=== PATIENT | female | born 1965 | race African-American/Black ===

== ENCOUNTER 2017-02-21 10:25 | Emergency (ER) | payer BC, SELFPAY ==
[2017-02-21] MEDS ORDERED: predniSONE 20 MG TAB ONE (11:46)
[2017-02-21] MEDS ORDERED: Ondansetron ODT 4 MG TAB ONE (11:46)
[2017-02-21] MEDS ORDERED: Indomethacin 25 mg Capsule ONE (11:46)
== END 2017-02-21 12:02 | disposition home or self-care (01) ==
LOC: MADERS 10:25
DX: M06.9 Rheumatoid arthritis, unspecified (principal); E11.9 Type 2 diabetes mellitus without complications; E78.5 Hyperlipidemia, unspecified; I10 Essential (primary) hypertension; F17.210 Nicotine dependence, cigarettes, uncomplicated
CPT/HCPCS: 96372; J2270; J7506; Q0162

== ENCOUNTER 2017-04-08 09:39 | Emergency (ER) | payer SELFPAY ==
[2017-04-08] MEDS ORDERED: Dexamethasone 4 MG TAB ONE (10:02)
[2017-04-08] MEDS ORDERED: Ibuprofen 800 MG TAB ONE (10:02)
[2017-04-08] MEDS ORDERED: HYDROcodone/Acetaminophen 10/325 mg Tablet ONE (10:05)
== END 2017-04-08 10:25 | disposition home or self-care (01) ==
LOC: MADERS 09:39
DX: M06.9 Rheumatoid arthritis, unspecified (principal); E11.9 Type 2 diabetes mellitus without complications; I10 Essential (primary) hypertension; E78.5 Hyperlipidemia, unspecified; Z79.899 Other long term (current) drug therapy
CPT/HCPCS: 99283; J8540

== ENCOUNTER 2017-05-08 05:36 | Emergency (ER) | payer SELFPAY ==
[2017-05-08] MEDS ORDERED: hydrOXYzine 25 MG TAB ONE ×2 (06:17→06:32)
[2017-05-08] MEDS ORDERED: Ketorolac Tromethamine 30 MG/ML VIAL ONE (06:17)
[2017-05-08] MEDS ORDERED: cloNIDine 0.1 MG TAB ONE (06:17)
== END 2017-05-08 07:13 | disposition home or self-care (01) ==
LOC: MADERS 05:36
DX: I10 Essential (primary) hypertension (principal); G43.909 Migraine, unspecified, not intractable, without status migrainosus; E11.9 Type 2 diabetes mellitus without complications; E78.5 Hyperlipidemia, unspecified; I00 Rheumatic fever without heart involvement; F17.210 Nicotine dependence, cigarettes, uncomplicated; Z79.84 Long term (current) use of oral hypoglycemic drugs; Z79.82 Long term (current) use of aspirin; Z79.899 Other long term (current) drug therapy
CPT/HCPCS: 96374; J1885

== ENCOUNTER 2017-05-11 08:57 | Emergency (ER) | payer SELFPAY ==
[~2017-05-11 08:57] MED LIST: Sodium Chloride 0.9% 1,000 ML BAG ONE; Sodium Chloride 0.9% 100 ML BAG ONE
[2017-05-11] MEDS ORDERED: Ketorolac Tromethamine 30 MG/ML VIAL ONE (09:31)
[2017-05-11] MEDS ORDERED: Ondansetron HCl/PF 4 MG/2 ML Vial ONE (09:31)
[2017-05-11] MEDS ORDERED: Metoclopramide HCl 10 MG/2 ML VIAL ONE (09:31)
[2017-05-11] MEDS ORDERED: AMOXicillin 250 MG CAP ONE (09:57)
[2017-05-11] MEDS ORDERED: diphenhydrAMINE 50 MG/ML VIAL ONE (09:57)
== END 2017-05-11 10:44 | disposition home or self-care (01) ==
LOC: MADERS 08:57
DX: G43.909 Migraine, unspecified, not intractable, without status migrainosus (principal); J01.90 Acute sinusitis, unspecified; E11.9 Type 2 diabetes mellitus without complications; E78.5 Hyperlipidemia, unspecified; I10 Essential (primary) hypertension; M06.9 Rheumatoid arthritis, unspecified; Z79.82 Long term (current) use of aspirin; Z79.84 Long term (current) use of oral hypoglycemic drugs; Z79.899 Other long term (current) drug therapy; F17.210 Nicotine dependence, cigarettes, uncomplicated
CPT/HCPCS: 96361; 96374; 96375; J1200; J1885; J2405; J2765; J7050

== ENCOUNTER 2017-07-20 07:02 | Emergency (ER) | payer SELFPAY ==
[2017-07-20] MEDS ORDERED: Ketorolac Tromethamine 60 MG/2 ML VIAL ONE (07:41)
== END 2017-07-20 08:10 | disposition home or self-care (01) ==
LOC: MADERS 07:02
DX: G43.009 Migraine without aura, not intractable, without status migrainosus (principal); M06.9 Rheumatoid arthritis, unspecified; D64.9 Anemia, unspecified; I10 Essential (primary) hypertension; E78.5 Hyperlipidemia, unspecified; F17.210 Nicotine dependence, cigarettes, uncomplicated; Z79.891 Long term (current) use of opiate analgesic; Z79.82 Long term (current) use of aspirin; Z79.899 Other long term (current) drug therapy
CPT/HCPCS: 96372; J1040; J1885

== ENCOUNTER 2017-11-30 08:11 | Emergency (ER) | payer SELFPAY ==
[2017-11-30] MEDS ORDERED: Dexamethasone 4 MG TAB ONE (08:27)
== END 2017-11-30 08:35 | disposition home or self-care (01) ==
LOC: MADERS 08:11
DX: M54.41 Lumbago with sciatica, right side (principal); M46.96 Unspecified inflammatory spondylopathy, lumbar region; D64.9 Anemia, unspecified; G43.909 Migraine, unspecified, not intractable, without status migrainosus; E78.5 Hyperlipidemia, unspecified; I10 Essential (primary) hypertension; F17.210 Nicotine dependence, cigarettes, uncomplicated; E11.9 Type 2 diabetes mellitus without complications; Z79.84 Long term (current) use of oral hypoglycemic drugs; Z79.82 Long term (current) use of aspirin; Z79.899 Other long term (current) drug therapy
CPT/HCPCS: 99283; J8540

== ENCOUNTER 2018-02-05 19:27 | Emergency (ER) | payer SELFPAY ==
[2018-02-05] MEDS ORDERED: Ketorolac Tromethamine 60 MG/2 ML VIAL ONE (19:54)
== END 2018-02-05 20:20 | disposition home or self-care (01) ==
LOC: MADERS 19:27
DX: M06.9 Rheumatoid arthritis, unspecified (principal); G43.909 Migraine, unspecified, not intractable, without status migrainosus; E11.9 Type 2 diabetes mellitus without complications; I10 Essential (primary) hypertension; F17.210 Nicotine dependence, cigarettes, uncomplicated
CPT/HCPCS: 96372; J1885

== ENCOUNTER 2018-03-14 08:27 | Emergency (ER) | payer SELFPAY ==
[2018-03-14 09:31] LABS: #Eosinphils 0.2 thou/uL (0.0-0.7); #Lymphocytes 3.3 thou/uL (1.20-3.40); #Monocytes 0.5 thou/uL (0.11-0.59); #Neutrophils 3.8 thou/uL (1.40-6.50); %Basophils 0.5 % (0.0-1.0); %Eosinophils 2.6 % (0.0-10.0); %Lymphocytes 42.4 % (21.0-51.0); %Monocytes 6.6 % (0.0-10.0); %Neutrophils 47.9 % (42.0-75.0); Hemoglobin 11.6 g/dL (12.0-16.0); Mean Corpuscular HGB CONC 33.3 g/dL (32.0-36.0); Mean Corpuscular Hemoglobin 27.4 pg (27.0-31.0); Mean Corpuscular Volume 82.5 fL (78.0-98.0); Platelet Count 266 thou/uL (130-400); RBC Distribution Width 13.4 % (11.5-14.5); Red Blood Cell (RBC) Count 4.23 mill/uL (4.20-5.40); White Blood Cell (WBC) Count 7.8 thou/uL (4.8-10.8)
[2018-03-14 09:47] LABS: ALT (SGPT) 18 U/L (8-55); AST (SGOT) 15 U/L (5-34); Albumin 4.3 g/dL (3.5-5.0); Alkaline Phosphatase 81 U/L (40-150); Anion Gap 16 mmol/L (10-20); BUN (Urea Nitrogen) 12 mg/dL (9.8-20.1); Bilirubin, Total 0.5 mg/dL (0.2-1.2); Calc. Creatinine Clearance 0 mL/min (70-130); Calcium 9.7 mg/dL (7.8-10.44); Carbon Dioxide 21 mmol/L (22-29); Chloride 109 mmol/L (98-107); Estimated GFR-MDRD 83; Globulin 3.5 g/dL (2.4-3.5); Glucose 136 mg/dL (70-105); Potassium 4.4 mmol/L (3.5-5.1); Protein, Total 7.8 g/dL (6.0-8.3); Sodium 142 mmol/L (136-145)
--- NOTE | 2018-03-14 10:11 | CT ---
CT CHEST WITH IV CONTRAST: Date: 03/14/18 PROVIDED CLINICAL HISTORY: Chest pain. FINDINGS: The heart, pericardium, and great vessels appear unremarkable with the exception of coronary calcium. The airway appears patent and of normal caliber. The lungs are free of significant opacity. There is no pleural fluid or pneumothorax apparent. No evidence for thoracic lymph node enlargement. The visu alized portions of the upper abdomen demonstrate no acute process. Fatty infiltration of the liver is seen. The osseous structures demonstrate no concerning osteoblastic or osteolytic lesions. IMPRESSION: 1. No evidence for an acute process. 2. Coronary calcium. 3. Fatty infiltration of the liver. POS: [facility]
[2018-03-14] MEDS ORDERED: Iopamidol 370 76% 100 ML VIAL ONE (12:07)
== END 2018-03-14 10:25 | disposition home or self-care (01) ==
LOC: MADERS 08:27
DX: M06.9 Rheumatoid arthritis, unspecified (principal); M54.2 Cervicalgia; D64.9 Anemia, unspecified; E11.9 Type 2 diabetes mellitus without complications; E78.5 Hyperlipidemia, unspecified; I10 Essential (primary) hypertension; F17.210 Nicotine dependence, cigarettes, uncomplicated; Z79.82 Long term (current) use of aspirin; Z79.899 Other long term (current) drug therapy; Z79.891 Long term (current) use of opiate analgesic
CPT/HCPCS: 71260; 80053; 85025; 93005

== ENCOUNTER 2018-10-16 08:16 | Emergency (ER) | payer MEDICAID, SELFPAY | END 2018-10-16 08:47 | disposition home or self-care (01) | LOC: MADERS 08:16 | DX: B02.9 Zoster without complications (principal); Z79.84 Long term (current) use of oral hypoglycemic drugs; Z79.899 Other long term (current) drug therapy | CPT/HCPCS: 99283 ==

== ENCOUNTER 2019-02-15 08:11 | Emergency (ER) | payer SELFPAY ==
[2019-02-15] MEDS ORDERED: predniSONE 20 MG TAB ONE (08:39)
== END 2019-02-15 08:55 | disposition home or self-care (01) ==
LOC: MADERS 08:11
DX: M06.9 Rheumatoid arthritis, unspecified (principal); R21 Rash and other nonspecific skin eruption; E11.9 Type 2 diabetes mellitus without complications; I10 Essential (primary) hypertension; Z79.899 Other long term (current) drug therapy; Z79.84 Long term (current) use of oral hypoglycemic drugs; Z79.82 Long term (current) use of aspirin
CPT/HCPCS: 99283; J7512

== ENCOUNTER 2019-06-16 07:31 | Emergency (ER) | payer SELFPAY ==
[2019-06-16] MEDS ORDERED: predniSONE 20 MG TAB ONE (08:00)
== END 2019-06-16 08:04 | disposition home or self-care (01) ==
LOC: MADERS 07:31
DX: M06.9 Rheumatoid arthritis, unspecified (principal); G43.909 Migraine, unspecified, not intractable, without status migrainosus; E11.9 Type 2 diabetes mellitus without complications; I10 Essential (primary) hypertension; Z79.899 Other long term (current) drug therapy; Z79.82 Long term (current) use of aspirin; Z79.84 Long term (current) use of oral hypoglycemic drugs
CPT/HCPCS: 99283; J7512

== ENCOUNTER 2019-07-11 07:59 | Emergency (ER) | payer SELFPAY ==
[2019-07-11] MEDS ORDERED: Diazepam 5 MG TAB ONE (08:35)
[2019-07-11] MEDS ORDERED: HYDROcodone/Acetaminophen 10/325 mg Tablet ONE (08:35)
[2019-07-11] MEDS ORDERED: predniSONE 20 MG TAB ONE (08:36)
[2019-07-11] MEDS ORDERED: Naproxen 500 MG TAB ONE (08:36)
== END 2019-07-11 08:48 | disposition home or self-care (01) ==
LOC: MADERS 07:59
DX: M25.512 Pain in left shoulder (principal); M25.511 Pain in right shoulder; R51 Headache; M54.2 Cervicalgia; E11.9 Type 2 diabetes mellitus without complications; E78.5 Hyperlipidemia, unspecified; E78.00 Pure hypercholesterolemia, unspecified; M06.9 Rheumatoid arthritis, unspecified; I10 Essential (primary) hypertension; Z79.899 Other long term (current) drug therapy; Z79.82 Long term (current) use of aspirin; Z79.84 Long term (current) use of oral hypoglycemic drugs
CPT/HCPCS: 99283; J7512

== ENCOUNTER 2019-08-23 07:43 | Emergency (ER) | payer SELFPAY ==
[2019-08-23] MEDS ORDERED: predniSONE 20 MG TAB ONE (08:14)
== END 2019-08-23 08:20 | disposition home or self-care (01) ==
LOC: MADERS 07:43
DX: M19.012 Primary osteoarthritis, left shoulder (principal); M19.011 Primary osteoarthritis, right shoulder; M17.0 Bilateral primary osteoarthritis of knee; E78.5 Hyperlipidemia, unspecified; E78.00 Pure hypercholesterolemia, unspecified; E11.9 Type 2 diabetes mellitus without complications; I10 Essential (primary) hypertension; Z79.82 Long term (current) use of aspirin; Z79.899 Other long term (current) drug therapy
CPT/HCPCS: 99283; J7512

== ENCOUNTER 2019-10-19 08:04 | Emergency (ER) | payer SELFPAY ==
[2019-10-19] MEDS ORDERED: HYDROcodone/Acetaminophen 5/325 mg Tablet ONE (08:46)
[2019-10-19] MEDS ORDERED: predniSONE 20 MG TAB ONE (08:46)
== END 2019-10-19 09:00 | disposition home or self-care (01) ==
LOC: MADERS 08:04
DX: J01.90 Acute sinusitis, unspecified (principal); M06.9 Rheumatoid arthritis, unspecified; E78.5 Hyperlipidemia, unspecified; E78.00 Pure hypercholesterolemia, unspecified; E11.9 Type 2 diabetes mellitus without complications; I10 Essential (primary) hypertension; Z79.84 Long term (current) use of oral hypoglycemic drugs; Z79.82 Long term (current) use of aspirin; Z79.899 Other long term (current) drug therapy
CPT/HCPCS: 99283; J7512

== ENCOUNTER 2020-04-13 08:07 | Emergency (ER) | payer SELFPAY ==
--- NOTE | 2020-04-13 09:11 | RAD ---
RADIOGRAPH CHEST 1 VIEW: DATE: 04/13/2020 HISTORY: 54-year-old female with right-sided chest pain FINDINGS: There are no airspace densities, pulmonary edema, pneumothorax, or cardiomegaly. The lateral costophr enic angles are sharp. No gross evidence of fracture of right clavicle. No dislocation of right glenohumeral joint. IMPRESSION: No acute cardiopulmonary findings.
[2020-04-13 09:30] LABS: ALT (SGPT) 542 U/L (8-55); AST (SGOT) 586 U/L (5-34); Albumin 4.5 g/dL (3.5-5.0); Alkaline Phosphatase 173 U/L (40-110); Anion Gap 21 mmol/L (10-20); BUN (Urea Nitrogen) 14 mg/dL (9.8-20.1); Bilirubin, Total 0.4 mg/dL (0.2-1.2); Calc. Creatinine Clearance 0 mL/min (70-130); Calcium 9.7 mg/dL (7.8-10.44); Carbon Dioxide 22 mmol/L (22-29); Estimated GFR-MDRD 70; Globulin 3.5 g/dL (2.4-3.5); Glucose 118 mg/dL (70-105); Potassium 3.8 mmol/L (3.5-5.1); Sodium 141 mmol/L (136-145)
[2020-04-13 09:32] LABS: Anisocytosis SLIGHT = 6-15 cells (100X) (0-5/hpf); Hemoglobin 12.3 g/dL (12.0-16.0); Hypochromia SLIGHT = 6-15 cells (100X) (0-5/hpf); Lymphocytes 52 % (21-51); MDiff Complete? YES; Mean Corpuscular HGB CONC 31.8 g/dL (32.0-36.0); Mean Corpuscular Hemoglobin 25.5 pg (27.0-31.0); Mean Corpuscular Volume 80.1 fL (78.0-98.0); Mean Platelet Volume 8.6 fL (7.4-10.4); Monocytes 4 % (0-10); Neutrophil 44 % (42-75); Platelet Count 339 thou/uL (130-400); Platelet Morphology Comment Appears Adequate; RBC Distribution Width 12.8 % (11.5-14.5); Red Blood Cell (RBC) Count 4.84 mill/uL (4.20-5.40); White Blood Cell (WBC) Count 6.9 thou/uL (4.8-10.8)
[2020-04-13 09:43] LABS: Chloride 102 mmol/L (98-107)
[2020-04-13 10:07] LABS: Bilirubin Negative (Negative); Blood, Urine Negative (Negative); Clarity Slightly Cloudy (Clear); Glucose, Urine (Dipstick) Negative (Negative); Ketone, Urine Negative (Negative); Leukocyte Trace (Negative); Nitrite Negative (Negative); Protein, Urine (Dipstick) Negative (Neg-Trace); Specific Gravity, Urine 1.015 (1.005-1.030); Urobilinogen 0.2 mg/dL (Less than 2); pH, Urine 5.5 (5.0-9.0)
[2020-04-13 10:09] LABS: Bacteria/HPF 1+ HPF (None Seen); RBC/HPF 0-3 HPF (0-3); WBC/HPF 0-3 HPF (0-3)
[2020-04-13 10:19] LABS: Acetaminophen Less than 6.0 mcg/mL (10.0-30.0); Alcohol Less than 10 mg/dL (Less than 10); Salicylate Less than 8.0 mg/dL (15.0-30.0)
--- NOTE | 2020-04-13 10:38 | CT ---
EXAM: CT ABDOMEN AND PELVIS HISTORY: Hepatitis. Elevated alkaline phosphatase. COMPARISON: None. Procedure: Multiple contiguous axial images were obtained and a CT of the abdomen and pelvis with IV contrast. C oronal reformats were performed. FINDINGS: Lower Chest: within normal limits. Vessels: Normal caliber aorta. No periaortic fat stranding. Heart: Normal heart size. No significant pericardial fluid Abdomen: Portal vein:Patent Gallbladder: Surgically absent Liver: Diffuse hypoattenuation suggesting hepatic steatosis. No enhancing masses within the liver. Pancreas: within normal limits. Spleen: within normal limits. Adrenals: within normal limits. Kidneys: Symmetric enhancement. No obstructive uropathy. Peritoneum: No ascites or free air, no fluid collection. Bowel: Limited evaluation due to the lack of oral contrast administration. No evidence of bowel obstr uction. Ileocecal junction is unremarkable. Normal caliber appendix. Scattered fecal material in a nondistended, nondilated colon. Mesentery and Retroperitoneum: No enlarged mesenteric or retroperitoneal lymph nodes. Abdominal Wall: Small umbilical hernia containing mesenteric fat. Pelvis: Reproductive Organs: Imaging was mass emanating from the uterine fundus measuring 5.2 x 4.9 cm compat ible with uterine leiomyoma. Additional 2.7 x 2.5 cm leiomyoma is present. Characterization is incomplete. Follicle in the left ovary measures 1.1 cm in the craniocaudal dimension Pelvis: No mass, lymphadenopathy, free air or free fluid. Bladder: within normal limits. Bones: within normal limits. IMPRESSION: 1. Normal caliber appendix. 2. Hepatic steatosis 3. Probable multiple uterine leiomyomas. Better interrogation with pelvic MRI is recommended.
[2020-04-13] MEDS ORDERED: Iopamidol 370 76% 100 ML VIAL ONE (11:18)
[2020-04-13 23:23] LABS: HBCM Index 0.07 S/CO (0-0.79); HBSAg Index 0.17 S/CO (0-0.99); Hep A IgM AB Non-Reactive (NonReactive); Hep A IgM S/CO 0.24 S/CO (0-0.79); Hep B Surf Ag Non-Reactive S/CO (NonReactive); Hep C IgG Ab Non-Reactive (NonReactive); Hep C Index 0.09 S/CO (0-0.79); Hepatitis B Core IgM Abs Non-Reactive (NonReactive)
== END 2020-04-13 11:20 | disposition home or self-care (01) ==
LOC: MADERS 08:07
DX: M25.511 Pain in right shoulder (principal); K75.9 Inflammatory liver disease, unspecified; E78.5 Hyperlipidemia, unspecified; E78.00 Pure hypercholesterolemia, unspecified; M06.9 Rheumatoid arthritis, unspecified; E11.9 Type 2 diabetes mellitus without complications; I10 Essential (primary) hypertension
CPT/HCPCS: 71045; 74177; 80053; 80074; 80307; 81003; 81015; 84484; 85025; 93005; 94760; Q9967